=== PATIENT | female | born 1975 | race Caucasian/White ===

== ENCOUNTER 2016-09-17 21:26 | Emergency (ER) | payer BC ==
[~2016-09-17] VITALS: Ht 149.9 cm; Wt 55.0 kg
[2016-09-17 21:28] VITALS: BP 157/89; PULSE 104; RESP 16; TEMP 98.9; O2SAT 99
[2016-09-17] MEDS ORDERED: OMEP40CA2 PO (22:07)
--- NOTE | 2016-09-17 22:11 | PD ---
HPI Chief Complaint: Abdominal Pain Time Seen by Provider: 22:08 Travel History International Travel<30 days: No Contact w/Intl Traveler<30days: No Traveled to known affect area: No History of Present Illness HPI 41-year-old female presents to the emergency department for evaluation of abdominal pain, vomiting 1, diarrhea that started approximately 2 days ago. Patient states she came from [place] today. She felt that she would get better , but her symptoms are worsening. She reports decreased appetite. She states she has had at least 7 episodes of loose stool today. She denies any blood in her stool. She states she vomited 1 before arrival. Patient reports history of diverticulitis with perforation with ileostomy and reversal. She also has history of . No chest pain or shortness of breath. No urinary symptoms. Patient states that when she had the diverticulosis perforation approximately 4 years ago, she states the pain was worse. PFSH Past Medical History Asthma: Yes Diverticulitis: Yes Hiatal Hernia: Yes Medical other: Yes (mitral value prolapse) Immunizations Current: Yes Triglycerides - High: Yes Tetanus Vaccination: Unknown Influenza Vaccination: No ?: Not Past Surgical History Section: Yes Other Surgery: Yes (spinal fusion) Social History Alcohol Use: Yes (occ) Tobacco Use: No Substance Use: No Allergies-Medications (Allergen,Severity, Reaction): Coded Allergies: Penicillin (Verified Allergy, Unknown, 09/17/16) Sulfa (Verified Allergy, Unknown, Rash, 09/17/16) Reported Meds & Prescriptions Reported Meds & Active Scripts Active Reported Omeprazole 40 Mg Cap 40 Mg PO DAILY Review of Systems Except as stated in HPI: all other systems reviewed are Neg Physical Exam Narrative GENERAL: Well-nourished, well-developed female patient, ambulatory. Afebrile. SKIN: Focused skin assessment warm/dry. HEAD: Normocephalic. Atraumatic. EYES: No scleral icterus. No injection or drainage. NECK: Supple, trachea midline. No JVD or lymphadenopathy. CARDIOVASCULAR: Regular rate and rhythm without murmurs, gallops, or rubs. RESPIRATORY: Breath sounds equal bilaterally. No accessory muscle use. Lungs sounds are clear to auscultation. GASTROINTESTINAL: Abdomen soft and nondistended. Patient has diffuse tenderness throughout. MUSCULOSKELETAL: No cyanosis, or edema. BACK: Nontender without obvious deformity. No CVA tenderness. Data Data Last Documented VS Vital Signs Date Time Temp Pulse Resp B/P Pulse Ox O2 Delivery O2 Flow Rate FiO2 09/17/16 22:33 16 09/17/16 21:28 98.9 104 157/89 99 Room Air Orders Morphine Inj (Morphine Inj) (09/17/16 22:15) Complete Blood Count With Diff (09/17/16 22:06) Comprehensive Metabolic Panel (09/17/16 22:06) Lipase (09/17/16 22:06) Urinalysis - C+S If Indicated (09/17/16 22:06) Ct Abd/Pel W/O Iv Contrast (09/17/16 22:06) Iv Access Insert/Monitor (09/17/16 22:06) Ecg Monitoring (09/17/16 22:06) Oximetry (09/17/16 22:06) Sodium Chloride 0.9% Flush (Ns Flush) (09/17/16 22:15) Ed Urine Pregnancytest Poc (09/17/16 22:06) Sodium Chlor 0.9% 1000 Ml Inj (Ns 1000 M (09/17/16 22:15) Ondansetron Inj (Zofran Inj) (09/17/16 22:15) MDM Medical Decision Making Medical Screen Exam Complete: Yes Emergency Medical Condition: Yes Medical Record Reviewed: Yes Differential Diagnosis Diverticulitis versus perforation versus instruction versus pancreatitis versus UTI Narrative Course 41-year-old female presents to the emergency department for evaluation of abdominal pain, vomiting 1, diarrhea for approximately 2 days. Patient is on vacation from [place]. CBC, CMP, lipase, CT abdomen/pelvis are ordered and pending. Patient is given normal saline 1 L IV bolus, Zofran 4 mg IV, morphine 4 mg IV. UPT is negative. Labs and imaging are pending. Dr. Bruner will resume care and disposition of patient. Emelia Valverde Sep 17, 2016 22:11
[2016-09-17 22:15] VITALS: RESP 16
[2016-09-17] MEDS ORDERED: MORPHINE SULFATE 8 MG/ML INJ IV PUSH ONE (22:15)
[2016-09-17] MEDS ORDERED: SODIUM CHLORIDE 0.9% FLUSH 10 ML FLUSH IV FLUSH PRN (22:15)
[2016-09-17] MEDS ORDERED: SODIUM CHLOR 0.9% 1000 ML INJ 1,000 ML IV ONE (22:15)
[2016-09-17] MEDS ORDERED: ONDANSETRON HCL 4 MG/2 ML VIAL IV PUSH ONE (22:15)
[2016-09-17 22:48] LABS: BASOPHIL % 0.1 % (0.0-2.0); EOSINOPHIL # 0.4 TH/MM3 (0-0.4); EOSINOPHIL % 2.7 % (0.0-4.0); HEMATOCRIT 45.3 % (35.0-46.0); HEMO FLAGS DIFF FINAL; LYMPHOCYTE # 1.9 TH/MM3 (1.0-4.8); MEAN CORPUSCULAR HEMOGLOBIN 28.7 PG (27.0-34.0); MEAN CORPUSCULAR HGB CONC 32.6 % (32.0-36.0); MONO % 7.5 % (0.0-8.0); NEUT % 76.7 % (16.0-70.0); PLATELET COUNT 164 TH/MM3 (150-450); RED BLOOD COUNT 5.15 MIL/MM3 (4.00-5.30); RED CELL DISTRIBUTION WIDTH 13.3 % (11.6-17.2); WHITE BLOOD COUNT 14.3 TH/MM3 (4.0-11.0)
[2016-09-17 23:05] LABS: ALT (GPT) 16 U/L (10-53)
[2016-09-17 23:07] LABS: ALKALINE PHOSPHATASE 83 U/L (45-117); ANION GAP 8 MEQ/L (5-15); AST (GOT) 39 U/L (15-37); BICARBONATE 20.7 MEQ/L (21.0-32.0); BLOOD UREA NITROGEN 11 MG/DL (7-18); CHLORIDE 106 MEQ/L (98-107); GLOMERULAR FILTRATION RATE 96 ML/MIN (>89); SODIUM (NA) 135 MEQ/L (136-145); TOTAL BILIRUBIN ADULT 0.9 MG/DL (0.2-1.0)
[2016-09-17 23:24] LABS: BACTERIA, URINE MANY /hpf; BLOOD, URINE NEG (NEG); COMMENT (UR) CULTURE INDICATED; CULTURE IF INDICATED CULTURE INDICATED; GLUCOSE,URINE NEG (NEG); KETONE, URINE 10 mg/dL (NEG); MUCUS URINE MOD /lpf (OCC); NITRITE,URINE NEG (NEG); PH, URINE 5.5 (5.0-8.5); SQUAMOUS EPITHELIAL CELL URINE 20 /hpf (0-5); URINE COLOR YELLOW (YELLW/STRAW)
--- NOTE | 2016-09-18 00:05 | RADRPT ---
EXAM DATE/TIME: 09/17/2016 23:23 [facility] COMPARISON: No previous studies available for comparison. INDICATIONS : Abdominal pain along with vomiting and diarrhea for two days. ORAL CONTRAST: No oral contrast ingested. RADIATION DOSE: 6.17 CTDIvol (mGy) MEDICAL HISTORY : Hernia, hiatal. Diverticulitis. Asthma, ventral hernia, bowel perforation SURGICAL HISTORY : section. hernia repair, ileostomy and reversal ENCOUNTER: Initial ACUITY: 2 days PAIN SCALE: 4/10 LOCATION: Abdomen TECHNIQUE: Volumetric scanning of the abdomen and pelvis was performed. Using automated exposure control and ad justment of the mA and/or kV according to patient size, radiation dose was kept as low as reasonably achievable to obtain optimal diagnostic quality images. DICOM format image data is available electro nically for review and comparison. FINDINGS: There is moderate dextroscoliosis of the thoracolumbar spine. Liver, spleen, kidneys, adrenals, pancr eas, stomach are unremarkable. There is motion artifact. The urinary bladder, uterus unremarkable. Th ere is evidence of previous surgery to the large bowel and small bowel with anastomotic staple lines in the pelvis and lower abdomen. There are no signs of obstruction. The appendix is normal. There is no adenopathy or aneurysm. No definite adnexal masses. Lung bases are clear. CONCLUSION: 1. No inflammatory changes are seen within the abdomen or pelvis. 2. Scoliosis and postsurgical changes are identified. Sunny Marie MD on September 18, 2016 at 0:02 Board Certified Radiologist. This report was verified electronically.
[2016-09-18] MEDS ORDERED: CIPR250T52 PO (00:18)
[2016-09-18] MEDS ORDERED: METR-1 PO (00:18)
--- NOTE | 2016-09-18 00:18 | PD ---
Data Data Last Documented VS Vital Signs Date Time Temp Pulse Resp B/P Pulse Ox O2 Delivery O2 Flow Rate FiO2 09/17/16 22:33 16 09/17/16 21:28 98.9 104 157/89 99 Room Air Orders Morphine Inj (Morphine Inj) (09/17/16 22:15) Complete Blood Count With Diff (09/17/16 22:06) Comprehensive Metabolic Panel (09/17/16 22:06) Lipase (09/17/16 22:06) Urinalysis - C+S If Indicated (09/17/16 22:06) Ct Abd/Pel W/O Iv Contrast (09/17/16 22:06) Iv Access Insert/Monitor (09/17/16 22:06) Ecg Monitoring (09/17/16 22:06) Oximetry (09/17/16 22:06) Sodium Chloride 0.9% Flush (Ns Flush) (09/17/16 22:15) Ed Urine Pregnancytest Poc (09/17/16 22:06) Sodium Chlor 0.9% 1000 Ml Inj (Ns 1000 M (09/17/16 22:15) Ondansetron Inj (Zofran Inj) (09/17/16 22:15) Urine Culture (09/17/16 22:15) Labs Laboratory Tests Test 09/17/16 22:15 White Blood Count 14.3 TH/MM3 Red Blood Count 5.15 MIL/MM3 Hemoglobin 14.8 GM/DL Hematocrit 45.3 % Mean Corpuscular Volume 88.0 FL Mean Corpuscular Hemoglobin 28.7 PG Mean Corpuscular Hemoglobin 32.6 % Concent Red Cell Distribution Width 13.3 % Platelet Count 164 TH/MM3 Mean Platelet Volume 9.4 FL Neutrophils (%) (Auto) 76.7 % Lymphocytes (%) (Auto) 13.0 % Monocytes (%) (Auto) 7.5 % Eosinophils (%) (Auto) 2.7 % Basophils (%) (Auto) 0.1 % Neutrophils # (Auto) 11.0 TH/MM3 Lymphocytes # (Auto) 1.9 TH/MM3 Monocytes # (Auto) 1.1 TH/MM3 Eosinophils # (Auto) 0.4 TH/MM3 Basophils # (Auto) 0.0 TH/MM3 CBC Comment DIFF FINAL Differential Comment Urine Color YELLOW Urine Turbidity HAZY Urine pH 5.5 Urine Specific [place] 1.022 Urine Protein TRACE mg/dL Urine Glucose (UA) NEG mg/dL Urine Ketones 10 mg/dL Urine Occult Blood NEG Urine Nitrite NEG Urine Bilirubin NEG Urine Urobilinogen LESS THAN 2.0 MG/DL Urine Leukocyte Esterase SMALL Urine RBC 2 /hpf Urine WBC 4 /hpf Urine Squamous Epithelial 20 /hpf Cells Urine Bacteria MANY /hpf Urine Mucus MOD /lpf Microscopic Urinalysis Comment CULTURE INDICATED Sodium Level 135 MEQ/L Potassium Level 4.0 MEQ/L Chloride Level 106 MEQ/L Carbon Dioxide Level 20.7 MEQ/L Anion Gap 8 MEQ/L Blood Urea Nitrogen 11 MG/DL Creatinine 0.67 MG/DL Estimat Glomerular Filtration 96 ML/MIN Rate Random Glucose 89 MG/DL Calcium Level 9.2 MG/DL Total Bilirubin 0.9 MG/DL Aspartate Amino Transf 39 U/L (AST/SGOT) Alanine Aminotransferase 16 U/L (ALT/SGPT) Alkaline Phosphatase 83 U/L Total Protein 7.4 GM/DL Albumin 3.8 GM/DL Lipase 117 U/L MDM Supervised Visit with JUANA: Yes Narrative Course I, Dr. Bruner, have reviewed the advance practice practioner's documentation and am in agreement, met with the patient face to face, made the diagnosis, and the medical decision making was done by me. *My assessment and Findings: 81-year-old female with history of diverticulitis with perforation resulting ileostomy, ileostomy takedown here with 2 days of abdominal pain, vomiting and diarrhea. This is primarily in the left lower quadrant, similar to patient's previous episodes of diverticulitis. Patient states that this is nowhere near the pain when she had her perforation. She does have periumbilical and left-sided abdominal tenderness palpation, overall benign abdominal examination. Differential includes diverticulitis, unlikely perforation or abscess, UTIs also on the differential. Laboratory workup notable for mild leukocytosis. CT abdomen and pelvis was unremarkable. Based on her history and states that this feels very similar to her previous diverticulitis we'll treat with Cipro and Flagyl discharged home Diagnosis Primary Impression: Diverticulitis Qualified Code: K57.32 - Diverticulitis of large intestine without perforation or abscess without bleeding Additional Impression: Abdominal pain Qualified Code: R10.9 - Abdominal pain, unspecified location Referrals: Primary Care Physician as needed Additional Instruction: Antibiotics as prescribed. Med/Other Pt SpecificInfo: Prescription(s) given Scripts Metronidazole (Flagyl)500 Mg [id number] Mg PO TID 7 Days Ref 0 Prov:Sarah Bruner MD 09/18/16 Ciprofloxacin (Cipro)250 Mg [id number] Mg PO BID 7 Days Ref 0 Prov:Sarah Bruner MD 09/18/16 Disposition: 01 DISCHARGE HOME Condition: Stable Sarah Bruner MD Sep 18, 2016 00:18
[2016-09-18] MEDS ORDERED: metroNIDAZOLE 500 MG TAB PO ONE (00:30)
[2016-09-18] MEDS ORDERED: CIPROFLOXACIN 750 MG TAB PO ONE (00:30)
== END 2016-09-18 00:53 | disposition home or self-care (01) ==
LOC: NEPE 21:26
DX: K57.32 Diverticulitis of large intestine without perforation or abscess without bleeding (principal); Z88.0 Allergy status to penicillin; Z88.2 Allergy status to sulfonamides
CPT/HCPCS: 74176; 80053; 81001; 83690; 84703; 85025; 87086; 96361; 96374; 96375; 99285; J2270; J2405; J7030